=== PATIENT | female | born 1955 | race Two or more races ===

== ENCOUNTER 2024-12-06 16:22 | Inpatient (IN) | payer MEDICAID ==
[~2024-12-06] VITALS: Ht 152.4 cm; Wt 40.9 kg
[2024-12-06] VITALS (22 sets, daily range): BP systolic 64–153; BP diastolic -19–91; PULSE 123–138; RESP 16–21; TEMP 98.1–99.2; O2SAT 90–99
[2024-12-06] MEDS: NOREPINEPHRINE 8 MG/250ML KIT 250 ML IV SCH (16:30)
[2024-12-06] MEDS: VASOPRESSIN 20 UNITS in SODIUM CHL 0.9% 99 ML IV SCH (16:40)
--- NOTE | 2024-12-06 16:42 | ED.PDOC ---
CPR-HPI HPI Comments 69-year-old female BIBA due to ALOC. EMS was bagging upon arrival at 1622. ROSC was obtained at 1606 prior to ER arrival. Per EMS, initial call was for a possible seizure, but when they arrived patient was unresponsive and was in V- Fib. Patient was shocked twice at 200 Joules. Patient went into V-Tach and was given one round of Lidocaine and 2 rounds of Epi as well. Glucose reading "HIGH". MD at bedside upon patient arrival to ER. Chief Complaint: ALOC Time Seen by MD: 16:22 Primary Care Provider: UNKNOWN Reviewed Notes: Medications, Allergies Allergies: Coded Allergies: NO KNOWN ALLERGIES (Unverified , 12/06/24) Home Meds Reported Medications Omeprazole (Omeprazole Dr) 20 Mg Cap, 20 MG PO, CAP 12/07/24 Fluoxetine Hcl (Fluoxetine Hcl) 20 Mg Cap, 20 MG PO DAILY for 30 Days, MG 12/07/24 Triamcinolone Acetonide (Triamcinolone Acetonide) 0.5 % Cre, 1 APPLIC TOP, APPLIC 12/07/24 Atorvastatin Calcium (Lipitor) 40 Mg Tab, 1 TAB PO DAILY, #30 TAB 5 Refills 12/07/24 Metformin Hydrochloride (Metformin Hcl Er) 750 Mg Tab, 1 TAB PO BID 12/07/24 Glimepiride (Glimepiride) 4 Mg Tab, 4 MG PO for 30 Days, MG 12/07/24 Information Source: Emergency Med Personnel Mode of Arrival: EMS Timing: Minutes Duration: Down time prior EMS: (10 mins), Total time prior hopital: (20 mins) Onset: Witnessed Available Hx: Other (DM) Inital rhythm: V-fib Treatment: CPR, Defibrillation, IV, Epinephrine Response: Sustained return of pulse Associated signs and symptoms: None Past Medical History PAST MEDICAL HISTORY: DM, Seizures Surgical History: Unknown, Unobtainable FINANCIAL ASSISTANCE ADVISOR History: Unknown, Unobtainable Family History Family History: Unknown, Unobtainable Social History Smoker: Unknown, Unobtainable Alcohol: Unknown, Unobtainable Drugs: Unknown, Unobtainable Lives In: Home Constitutional: denies: chills, diaphoresis, fatigue, fever, malaise, sweats, weakness, others EENTM: denies: blurred vision, double vision, ear bleeding, ear discharge, ear drainage, ear pain, ear ringing, eye pain, eye redness, hearing loss, mouth pain, mouth swelling, nasal discharge, nose bleeding, nose congestion, nose pain, photophobia, tearing, throat pain, throat swelling, voice changes, others Respiratory: denies: cough, hemoptysis, orthopnea, SOB at rest, shortness of breath, SOB with excertion, stridor, wheezing, others Cardiovascular: denies: chest pain, dizzy spells, diaphoresis, Dyspnea on exert ion, edema, irregular heart beat, left arm pain, lightheadedness, palpitations, PND, syncope, others Gastrointestinal: denies: abdomen distended, abdominal pain, blood streaked bowels, constipated, diarrhea, dysphagia, difficulty swallowing, hematemesis, melena, nausea, poor appetite, poor fluid intake, rectal bleeding, rectal pain, vomiting, others Genitourinary: denies: abnormal vagina bleeding, burning, dyspareunia, dysuria, flank pain, frequency, hematuria, incontinence, pain, , vagina discharge, urgency, others Neurological: denies: dizziness, fainting, headache, left sided numbness, left sided weakness, numbness, paresthesia, pre-existing deficit, right sided numbness, right sided weakness, seizure, speech problems, tingling, tremors, weakness, others Musculoskeletal: denies: back pain, gout, joint pain, joint swelling, muscle pain, muscle stiffness, neck pain, others Integumetry: denies: bruises, change in color, change in hair/nails, dryness, laceration, lesions, lumps, rash, wounds, others Allergic/Immunocompromised: denies: Difficulty Healing, Frequent Infections, Hives, Itching, others Hematologic/Lymphatic: denies: anemia, blood clots, easy bleeding, easy bruising, swollen glands, others Endocrine: denies: excessive hunger, excessive sweating, excessive thirst, excessive urination, flushing, intolerance to cold, intolerance to heat, unexplained weight gain, unexplained weight loss, others Psychiatric: denies: anxiety, bipolar disorder, depression, hopeless, panic disorder, schizophrenia, sleepless, suicidal, others Unable to Obtain due to: Medical Urgency (STATUS-POST CPR) All Other Systems: Reviewed and Negative Physical Exam General Appearance: Severe Distress (STATUS-POST CPR) HEENT: NOT DONE Neck: NOT DONE Respiratory: NOT DONE Cardiovascular: NOT DONE Breast Exam: Deferred Gastrointestinal: NOT DONE Genitalia: Deferred Pelvic: Deferred Rectal: Deferred Extremities: NOT DONE Neurologic: NOT DONE Cerebellar Function: NOT DONE Reflexes: NOT DONE Skin: NOT DONE Lymphatic: NOT DONE Was a procedure done? Was a procedure done?: Yes Sedation Sedation?: No Central Line Recorder of insertion practice: Plug Paster Occupation of proj mgr: Attending Physician Indication: Hypotension, Volume resuscitation Room prepared for procedure: Yes Plug Paster performed hand hygien: Yes Maximal sterile barrier precau: Mask/Eye shield, Sterlie gloves, Large sterlie drape Skin Preparation: Chlorhexidine gluconate Skin preparation completely dr: Yes Insertion site: Right, Femoral Central line catheter type: [id number] dialysis Number of lumens: 3 Central line exchanged over a: Yes Antiseptic ointment applied to: Yes Post Assessment: Proper placement Informed consent obtained: No Risks/benefits/alt described: No Intubation Indication: Respiratory Insufficiency, Altered Mental Status Prep: No Preoxygenation Pretreated with: Other (Etomidate) Medicated with: Other (Rocuronium) Intubation Approach: Orotracheal Intubation size: cm (8) Informed consent obtained: No Risks/benefits/alt described: No Other Procedure Procedure Right Femoral Arterial Line Insertion Indication Post arrest on multiple pressors Anesthetic None Prep Chlorhexadine Success Yes Informed consent obtained: No Risks, benefits, and alternati: No Differential Dx CPR Differential Diagnosis: Cardiopulmonary arrest, Cardiac Tamponade, Myocardial Infarction, Respiratory Failure X-Ray, Labs, Meds, VS Vital Signs Date Time Temp Pulse Resp B/P (MAP) Pulse Ox O2 Delivery O2 Flow Rate FiO2 12/06/24 19:00 113/56 12/06/24 19:00 113/56 12/06/24 19:00 113/56 12/06/24 19:00 123 18 113/56 (75) 98 12/06/24 19:00 123 19 113/56 (75) 96 12/06/24 18:45 123 18 101/55 (70) 98 12/06/24 18:30 123 18 110/77 (88) 98 12/06/24 18:27 121 12/06/24 18:15 122 18 122/61 (81) 98 12/06/24 18:00 121 20 124/64 (84) 98 12/06/24 18:00 124/64 6/16/25 18:00 124/64 12/06/24 18:00 124/64 12/06/24 17:55 123 21 115/73 (87) 96 50 12/06/24 17:45 117 17 126/70 (88) 98 12/06/24 17:30 111 17 123/70 (87) 98 12/06/24 17:30 Mechanical Ventilator+ 50 50 12/06/24 17:15 129/73 12/06/24 17:15 129/73 12/06/24 17:15 129/73 12/06/24 17:06 140/82 12/06/24 17:00 141/77 12/06/24 16:55 129/75 12/06/24 16:50 117/70 12/06/24 16:40 54/33 12/06/24 16:39 95 12/06/24 16:35 51/28 12/06/24 16:30 90 16 51/28 (36) 99 100 12/06/24 16:30 83/45 12/06/24 16:25 98.1 101 20 83/45 (58) 99 98.1 12/06/24 16:22 98.1 101 20 83/45 (58) 99 98.1 Lab Test 12/06/24 17:48 12/06/24 17:46 12/06/24 16:50 Range/Units Sodium Level 134 L 132 L 136-145 mmol/L Potassium Level 4.6 4.5 3.5-5.1 mmol/L Chloride Level 97 L 96 L 98-107 mmol/L Carbon Dioxide Level < 10 *L < 10 *L 20-31 mmol/L Anion Gap 27.32568 H 26.57103 H 5-15 Blood Urea Nitrogen 78 #H 63 H 9-23 mg/dL Creatinine 2.41 H 2.36 H 0.550-1.02 mg/dL Glomerular Filtration Rate Calc 21 22 >90 mL/min BUN/Creatinine Ratio 32.4 H 26.7 H 10.0-20.0 Serum Glucose 672 *H 668 *H 74-106 mg/dL Calcium Level 9.0 9.3 8.7-10.4 mg/dL Troponin I High Sensitivity 419 *H 210 *H </=34 ng/L Blood Gas Specimen Type Arterial Blood Gas Sample Site Right radial Blood Gas Patient Temperature 37.0 Arterial Blood Date Drawn [id number] Arterial Blood pH 6.995 *L 7.350-7.450 Arterial Blood Partial Pressure CO2 31.1 L 32.0-45.0 mmHg Arterial Blood Partial Pressure O2 343.8 *H 83.0-108.0 mmHg Arterial Blood HCO3 7.4 L 21.0-28.0 mmol/L Arterial Blood Oxygen Saturation 99.1 H 94.0-98.0 % Arterial Blood Base Excess -23.0 L -2.0-3.0 mmol/L Arterial Blood Oxyhemoglobin 98.0 94.0-98.0 % Arterial Blood Carboxyhemoglobin 0.4 L 0.5-1.5 % Arterial Blood Methemoglobin 0.7 0.0-1.5 % Anson Test Yes Blood Gas Total Hemoglobin 14.20 12.0-16.0 g/dL Blood Gas Set Respiration Rate 16.0 Blood Gas Modality Vent - ac Blood Gas Spontaneous Rate 20 FiO2 % 100.0 Blood Gas Tidal Volume 400.0 Blood Gas PEEP or CPAP 5.0 Blood Gas Comments Blood Gas Critical Value Read Back Yes Blood Gas Notified Whom Dr. sebastien dong Blood Gas Notified Time [id number] Blood Gas Notified By Ronald vega rice farmer White Blood Count 12.5 H 4.4-10.8 10^3/uL Red Blood Count 3.87 L 4.0-5.20 10^6/uL Hemoglobin 12.6 12.2-16.2 g/dL Hematocrit 38.5 36.0-46.0 % Mean Corpuscular Volume 99.5 80.0-100.0 fL Mean Corpuscular Hemoglobin 32.5 H 28.0-32.0 pg Mean Corpuscular Hemoglobin Concent 32.6 32.0-36.0 g/dL Red Cell Distribution Width 13.1 11.8-14.3 % Platelet Count 216 140-450 10^3/uL Mean Platelet Volume 7.7 6.9-10.8 fL Neutrophils (%) (Auto) 60.9 37.0-80.0 % Lymphocytes (%) (Auto) 35.4 10.0-50.0 % Monocytes (%) (Auto) 3.4 0.0-12.0 % Eosinophils (%) (Auto) 0.2 0.0-7.0 % Basophils (%) (Auto) 0.1 0.0-2.0 % Neutrophils # (Auto) 7.6 1.6-8.6 10 ^3/uL Lymphocytes # (Auto) 4.4 0.4-5.4 10 ^3/uL Monocytes # (Auto) 0.4 0-1.3 10 ^3/uL Eosinophils # (Auto) 0 0-0.8 10 ^3/uL Basophils # (Auto) 0 0-0.2 10 ^3/uL Nucleated Red Blood Cells 0.1 % Serum Osmolality 343 H 278-298 mOsm/kg Lactic Acid Level 10.0 *H 0.4-2.0 mmol/L Phosphorus Level 10.4 H 2.4-5.1 mg/dL Magnesium Level 2.6 1.6-2.6 mg/dL Total Bilirubin 0.3 0.2-1.0 mg/dL Aspartate Amino Transferase (AST) 432 H <34 U/L Alanine Aminotransferase (ALT) 177 H 7-40 U/L Alkaline Phosphatase 121 H 46-116 U/L B-Type Natriuretic Peptide 116.46 0-100 pg/mL Total Protein 5.3 L 5.7-8.2 g/dL Albumin 3.1 L 3.2-4.8 g/dL Microbiology Date/Time Source Procedure Growth Status 12/06/24 16:50 Blood Blood Culture - Preliminary Resulted Current Medications Medications (Trade) Dose Ordered Sig/Kem Route Start Time Stop Time Status Last Admin Vasopressin 20 units/Sodium Chloride 100 ml @ 9 mls/hr Q11H7M IV 12/06/24 16:45 12/07/24 00:53 Norepinephrine Bitartrate 250 ml @ 3.75 mls/hr Q24H IV 12/06/24 16:45 12/07/24 06:48 Midazolam HCl 50 ml @ 1 mls/hr Q24H IV 12/06/24 17:15 12/06/24 17:15 Fentanyl Citrate 250 ml @ 2.5 mls/hr Q24H IV 12/06/24 17:15 12/06/24 17:15 Insulin Human (Reg)/Sodium Chloride 100 ml @ 0.5 mls/hr Q24H IV 12/06/24 18:00 12/06/24 20:48 DC 12/06/24 18:30 Diagnostic Test (Pha) (Accu-Chek Comfort Curve T) 1 strip Q90MIN 12/06/24 18:00 12/07/24 06:12 Insulin Glargine (Lantus) 15 units ONCE ONCE SC 12/06/24 18:00 12/06/24 18:01 DC 12/06/24 18:41 Sodium Bicarbonate 100 ml ONCE ONCE IV 12/06/24 18:00 12/06/24 18:01 DC 12/06/24 18:30 Time of 1ST Reevaluation: 16:50 Reevaluation 1ST: Unchanged Patient Education/Counseling: Pt Unresponsive Family Education/Counseling: No Family Present SEPSIS Sepsis Screen Date sepsis recognized/suspect: Dec 06, 2024 Time Sepsis recognized/suspect: 1620 Recent Procedure: No Respiratory Rate >20: No Heart Rate >90: No Temp<36 C (96.8 F) or >38.3 C: No SBP <90 or MAP <65 mmHG: No New Acute Mental Status Change: Yes Is the patient on CPAP, BIPAP,: No Orders/Vitals/Labs Physician Orders Sodium Chl 0.9% (So... W/Vasopressin (12/06/24 16:45) Norepinephrine 8 Mg/250ml Kit (Levophed) (12/06/24 16:45) Post Acute Care Nurse Practitioner (12/06/24 16:40) Pulse Oximetry (12/06/24 16:40) Drug Screen (12/06/24 16:40) Urinalysis (12/06/24 16:40) Urine Bacterial Culture (12/06/24 16:40) Blood Culture (12/06/24 16:40) Electrocardigram (12/06/24 16:40) Chest Portable (12/06/24 16:40) Heplock Iv (12/06/24 16:40) Electrocardigram (12/06/24 17:40) Electrocardigram (12/06/24 19:40) Communication Order (12/06/24 16:42) Communication Order (12/06/24 16:42) Ventilator Setup (12/06/24 16:30) Abg W/ Co-Ox (12/06/24 17:30) Respiratory Culture W/ Gs (12/06/24 16:30) Midazolam Drip 50 Mg/50ml (Versed Drip 5 (12/06/24 17:15) Fentanyl Drip 2500mcg/250mlns (12/06/24 17:15) Rass Sedation Scale Q1HR (12/06/24 17:15) Propofol (Diprivan) (12/06/24 17:30) Chest Portable (12/06/24 17:29) Head Without Contrast (12/06/24 17:30) Insulin Drip Protocol (12/06/24 ) Sodium Chloride 0.9% (12/07/24 00:00) Dextrose 50% Syringe (12/06/24 18:00) Glucose Blood (Accu-Chek Comfort Curve T (12/06/24 18:00) Basic Metabolic Panel (12/07/24 11:49) Neurological Assessment (12/06/24 17:49) Insulin Lantus (Glargine) (Lantus) (12/07/24 10:00) Vital Signs Date Time Temp Pulse Resp B/P (MAP) Pulse Ox O2 Delivery O2 Flow Rate FiO2 12/06/24 19:00 113/56 12/06/24 19:00 113/56 12/06/24 19:00 113/56 12/06/24 19:00 123 18 113/56 (75) 98 12/06/24 19:00 123 19 113/56 (75) 96 12/06/24 18:45 123 18 101/55 (70) 98 12/06/24 18:30 123 18 110/77 (88) 98 12/06/24 18:27 121 12/06/24 18:15 122 18 122/61 (81) 98 12/06/24 18:00 121 20 124/64 (84) 98 12/06/24 18:00 124/64 12/06/24 18:00 124/64 12/06/24 18:00 124/64 12/06/24 17:55 123 21 115/73 (87) 96 50 12/06/24 17:45 117 17 126/70 (88) 98 12/06/24 17:30 111 17 123/70 (87) 98 12/06/24 17:30 Mechanical Ventilator+ 50 50 12/06/24 17:15 129/73 12/06/24 17:15 129/73 12/06/24 17:15 129/73 12/06/24 17:06 140/82 12/06/24 17:00 141/77 12/06/24 16:55 129/75 12/06/24 16:50 117/70 12/06/24 16:40 54/33 12/06/24 16:39 95 12/06/24 16:35 51/28 12/06/24 16:30 90 16 51/28 (36) 99 100 12/06/24 16:30 83/45 12/06/24 16:25 98.1 101 20 83/45 (58) 99 98.1 12/06/24 16:22 98.1 101 20 83/45 (58) 99 98.1 Laboratory Tests Test 12/06/24 16:50 Lactic Acid Level 10.0 mmol/L (0.4-2.0) *H White Blood Count 12.5 10^3/uL (4.4-10.8) H Departure 1 Departure Time of Disposition: 07:21 (Patient presented with post arrest. Patient was emergently intubated, central line placed, and arterial line placed. patient on multiple pressors. Patient also in DKA will admit patient to ICU. ) Impression: Primary Impression: Cardiac arrest Additional Impressions: DKA, type 2 Qualified Codes: E11.11 - Type 2 diabetes mellitus with ketoacidosis with coma Ventricular fibrillation Cardiogenic shock Disposition: ADMITTED INPATIENT Admit to: ICU Condition: Critical Critical Care Note Critical Care Time?: Yes Critical care comment: Post arrest patient in DKA. Authorized and Performed by: Kelvin Dong MD Total critical care time: Approximately 118 minutes Due to a high probability of clinically significant, life threatening deterioration, the patient required my highest level of preparedness to intervene emergently and I personally spent this critical care time directly and personally managing the patient. This critical care time included obtaining a history; examining the patient; pulse oximetry; ordering and review of studies; arranging urgent treatment with development of a management plan; evaluation of patient's response to treatment; frequent reassessment; and, discussions with other providers. This critical care time was performed to assess and manage the high probability of imminent, life-threatening deterioration that could result in multi-organ failure. It was exclusive of separately billable procedures and treating other patients and teaching time. Please see my other sections and the rest of the note for further information on patient assessment and treatment. Heart Score Heart Score: Heart Score Response (Comments) Value History Highly Suspicious [address]-Deviation 2 Age >65 2 Risk Factors >3 or Hx ASHD 2 Troponin >3 x's Normal limit 2 Total 10 Stability Stability form required: No I personally scribed for KELVIN DONG MD ([email or web address]) on 12/06/24 at 16:42. Electronically submitted by Ash Walls ([email or web address]). KELVIN DONG MD Dec 06, 2024 16:42
[2024-12-06] MEDS: VASOPRESSIN 20 UNIT/ML ONE (16:44)
[2024-12-06 17:07] LABS: Basophils # (auto) 0 10 ^3/uL (0-0.2); Basophils % (auto) 0.1 % (0.0-2.0); Eosinophils # (auto) 0 10 ^3/uL (0-0.8); Eosinophils % (auto) 0.2 % (0.0-7.0); Hematocrit 38.5 % (36.0-46.0); Hemoglobin 12.6 g/dL (12.2-16.2); Lymphocytes # (auto) 4.4 10 ^3/uL (0.4-5.4); Lymphocytes % (auto) 35.4 % (10.0-50.0); Mean Corpuscular Hemoglobin 32.5 pg (28.0-32.0); Mean Corpuscular Hgb Conc. 32.6 g/dL (32.0-36.0); Mean Corpuscular Volume 99.5 fL (80.0-100.0); Monocytes # (auto) 0.4 10 ^3/uL (0-1.3); Monocytes % (auto) 3.4 % (0.0-12.0); Neutrophils # (auto) 7.6 10 ^3/uL (1.6-8.6); Neutrophils % (auto) 60.9 % (37.0-80.0); Nucleated Red Blood Cells % 0.1 %; Platelet Count (auto) 216 10^3/uL (140-450); Red Blood Cells 3.87 10^6/uL (4.0-5.20); Red Cell Distribution Width 13.1 % (11.8-14.3); White Blood Cell 12.5 10^3/uL (4.4-10.8)
[2024-12-06] MEDS: MIDAZOLAM DRIP 50 mg/50mL 50 ML IV SCH (17:15)
[2024-12-06] MEDS: fentaNYL Drip 2500mCg/250mlNS 250 ML IV SCH (17:15)
--- NOTE | 2024-12-06 17:15 | DVH ---
CHEST RADIOGRAPH Indication: ALOC Technique: Single frontal view of the chest was obtained COMPARISON: None FINDINGS: Lines and Tubes: Endotracheal tube in satisfactory position. Lungs: Multifocal airspace disease. Pleura: No effusion. No pneumothorax. Cardiomediastinal contours: Unremarkable Bones: Unremarkable IMPRESSION: Endotracheal tube in satisfactory position.
[2024-12-06] MEDS: MIDAZOLAM DRIP 50 mg/50mL 50 ML IV ONE (17:22)
[2024-12-06] MEDS: fentaNYL Drip 2500mCg/250mlNS 250 ML IV ONE (17:23)
[2024-12-06 17:28] LABS: Anion Gap 26.00001 (5-15); BUN/Creatinine Ratio 26.7 (10.0-20.0); Bilirubin, Total 0.3 mg/dL (0.2-1.0); Calcium 9.3 mg/dL (8.7-10.4); Potassium 4.5 mmol/L (3.5-5.1)
[2024-12-06 17:43] LABS: Alanine Aminotransferase 177 U/L (7-40); Albumin 3.1 g/dL (3.2-4.8); Alkaline Phosphatase 121 U/L (46-116); Aspartate Aminotransferase 432 U/L (<34); Blood Urea Nitrogen 63 mg/dL (9-23); Chloride 96 mmol/L (98-107); Sodium 132 mmol/L (136-145); Total Protein 5.3 g/dL (5.7-8.2)
[2024-12-06 17:44] LABS: Carbon Dioxide < 10 mmol/L (20-31); Glucose 668 mg/dL (74-106)
[2024-12-06] MEDS: SODIUM CHLORIDE 0.9% 1,000 ML IV ONE (18:00)
[2024-12-06] MEDS: SODIUM CHLORIDE 0.9% 1,000 ML IV SCH ×2 (18:00→21:12)
[2024-12-06 18:20] LABS: Magnesium 2.6 mg/dL (1.6-2.6)
--- NOTE | 2024-12-06 18:21 | DVH ---
CHEST RADIOGRAPH Indication: OG PLACMENT Technique: Single frontal view of the chest was obtained Comparison: 12/06/2024 FINDINGS: Endotracheal tube tip projects 1.0.8 cm above the jason. Nasogastric tube projects towar ds the proximal stomach. Recommend repositioning / advancement of the nasogastric tube. The cardiac silhouette is unremarkable. The lungs demonstrate diffuse bilateral airspace opacities, l [id number]. The pulmonary vasculature is prominent. There is no pleural effusion.. There is no pneumothorax. Gaseous distention of the stomach. IMPRESSION: As above
[2024-12-06 18:27] LABS: Phosphorus 10.4 mg/dL (2.4-5.1)
[2024-12-06] MEDS: ACCU-CHEK COMFORT CURVE STRIP VI SCH (18:29)
[2024-12-06] MEDS: INSULIN DRIP 100 UNIT/100ML 100 ML IV SCH (18:30)
[2024-12-06] MEDS: SODIUM BICARB 8.4% 50Meq/50ml SYR Vial IV ONE (18:30)
[2024-12-06] MEDS: PROPOFOL 100 ML IV SCH (18:37)
[2024-12-06] MEDS: INSULIN LANTUS (GLARGINE) 1 /0.01ml (100units/ml) SC ONE (18:41)
[2024-12-06 18:44] LABS: Potassium 4.6 mmol/L (3.5-5.1)
[2024-12-06 18:45] LABS: Anion Gap 27.00001 (5-15)
[2024-12-06 18:50] LABS: BUN/Creatinine Ratio 32.4 (10.0-20.0)
[2024-12-06] MEDS ORDERED: VANCOMYCIN PER PHARMACY 0 MG IV SCH (19:15)
[2024-12-06] MEDS ORDERED: IBUPROFEN 600 MG TAB PO PRN (19:15)
[2024-12-06] MEDS ORDERED: MORPHINE SULFATE INJ 2 MG/ml SYRG IV PRN ×2 (19:15)
[2024-12-06] MEDS ORDERED: ONDANSETRON HCL 4 MG/2 ML VIAL IV PRN (19:15)
[2024-12-06] MEDS ORDERED: NITROGLYCERIN 0.4 MG SL TAB SL PRN ×2 (19:15)
[2024-12-06 19:24] LABS: Blood Urea Nitrogen 78 mg/dL (9-23); Chloride 97 mmol/L (98-107); Sodium 134 mmol/L (136-145)
[2024-12-06 19:25] LABS: Carbon Dioxide < 10 mmol/L (20-31); Glucose 672 mg/dL (74-106)
--- NOTE | 2024-12-06 19:32 | DVHHP2 ---
History of Present Illness Reason for Visit: Diabetic ketoacidosis History of Present Illness The patient is a 69-year-old female with past medical history of seizure and diabetes mellitus who presented to [facility] ED for evaluation of altered level of consciousness. As reported by EMS, initial call was for poss ible seizure, but when they arrived on the scene patient was unresponsive and was in V-Fib, was shocked twice at 200 Joules. Patient went into V-Tach, was given one round of Lidocaine, and 2 rounds of Epi as well; blood glucose reading "HIGH", EN route to our facility ED. patient's condition continued to get worse with hypoxia, altered mental status, increased work of breathing, and was subsequently intubated. Patient was seen and evaluated in the ED, laboratory data shows WBC 12.5, platelets 216, sodium 132, potassium 4.5, BUN 63, creatinine 2.36, glucose 668, anion gap 26.00, calcium 9.3, BNP 116.46, protein 5.3, albumin 3.1, lactic acid 10.0, AST 432, ALT 177, troponin 419, blood pressure 54/33 trending up to 122/61, heart rate 90, temperature 98.1 F, O2 saturation 98% on ventilator. Patient was started on insulin drip, on IV antibiotic regimen Zosyn, please see medication orders section in the computer. On my assessment, patient is fully intubated, no diaphoresis, no diarrhea, no vomiting, no fever, no chills. Patient was admitted for further evaluation and medical management. Past Medical History DM, Seizures Past Surgical History Unknown, Unobtainable Family History Reviewed, noncontributory to the management of this case. Past Social History The patient lives at home, no history of smoking, alcohol or illicit drugs abuse on file. Review of Systems Constitutional: Yes: Weakness, Other (Fatigue); No: Fever, Chills, Sweats, Malaise Eyes: No: Pain, Vision change, Conjunctivae inflammation, Eyelid inflammation, Other, Redness ENT: No: Ear pain, Ear discharge, Nose pain, Nose discharge, Nose congestion, Mouth pain, Mouth swelling, Throat pain, Throat swelling, Other Respiratory: Shortness of breath, Other (SOB at rest); No: Cough, Dry, SOB with excertion, Wheezing, Hemoptysis, Pleuritic Pain, Sputum, Wheezing Cardiovascular: No: Chest Pain, Palpitations, Orthopnea, Paroxysmal Noc. Dyspnea, Edema, Lt Headedness, Other Gastrointestinal: No: Nausea, Vomiting, Abdominal Pain, Diarrhea, Constipation, Melena, Hematochezia, Other Genitourinary: No Dysuria, No Frequency, No Incontinence, No Hematuria, No Retention, No Other Musculoskeletal: No: other, neck pain, shoulder pain, arm pain, back pain, hand pain, leg pain, foot pain Skin: No: Rash, Lesions, Jaundice, Bruising, Other Neurological: Other (Altered level of consciousness); No: Weakness, Numbness, Incoordination, Change in speech, Confusion, Seizures Allergies: Coded Allergies: NO KNOWN ALLERGIES (Unverified , 12/06/24) Medications Current Medications Medications Dose Ordered Sig/Kem Route Start Time Stop Time Status Last Admin Dose Admin Vasopressin 20 units/Sodium Chloride 100 ml @ 9 mls/hr Q11H7M IV 12/06/24 16:45 12/06/24 16:40 9 MLS/HR Norepinephrine Bitartrate 250 ml @ 3.75 mls/hr Q24H IV 12/06/24 16:45 12/06/24 16:30 18.75 MLS/HR Midazolam HCl 50 ml @ 1 mls/hr Q24H IV 12/06/24 17:15 12/06/24 17:15 1 MLS/HR Fentanyl Citrate 250 ml @ 2.5 mls/hr Q24H IV 12/06/24 17:15 12/06/24 17:15 2.5 MLS/HR Propofol 100 ml @ 1.227 mls/ hr Q24H IV 12/06/24 17:30 Sodium Chloride 1,000 ml @ 500 mls/hr Q2H IV 12/06/24 18:00 12/06/24 21:59 Sodium Chloride 1,000 ml @ 250 mls/hr Q4H IV 12/06/24 22:00 12/06/24 23:59 Sodium Chloride 1,000 ml @ 150 mls/hr Q6H40M IV 12/07/24 00:00 Insulin Human (Reg)/Sodium Chloride 100 ml @ 0.5 mls/hr Q24H IV 12/06/24 18:00 12/06/24 18:30 6 MLS/HR Dextrose 50 ml UD PRN IV 12/06/24 18:00 Diagnostic Test (Pha) 1 strip Q90MIN 12/06/24 18:00 12/06/24 18:29 1 STRIP Insulin Glargine 15 units DAILY SC 12/07/24 10:00 Nitroglycerin 0.4 mg Q5MINP PRN SL 12/06/24 19:15 Morphine Sulfate 2 mg Q30M PRN IV 12/06/24 19:15 Exam Vital Signs Vital Signs Date Time Temp Pulse Resp B/P (MAP) Pulse Ox O2 Delivery O2 Flow Rate FiO2 12/06/24 18:27 121 12/06/24 18:15 18 122/61 (81) 98 12/06/24 16:30 100 12/06/24 16:25 98.1 98.1 General Appearance: Other (Fully intubated) HEENT: Atraumatic, PERRLA, EOMI, Mucous membr. moist/pink Respiratory: Normal air movement, Other (On ventilator) Cardiovascular: Regular rate, Normal S1, Normal S2, No murmurs Abdominal: Normal bowel sounds, Soft, No tenderness, No hepatospenomegaly, No masses Extremities: No clubbing, No cyanosis, No edema, Normal pulses, No tenderness/swelling Skin: No rashes, No breakdown, No significant lesion Neuro: Normal tone (Generalized weakness), Other Psych/Mental Status: Mood NL, Other (Altered mental status) Labs/Xrays Labs Test 12/06/24 19:26 12/06/24 17:48 12/06/24 17:46 12/06/24 16:50 Range/Units Sodium Level 134 L 136-145 mmol/L Potassium Level 4.6 3.5-5.1 mmol/L Chloride Level 97 L 98-107 mmol/L Carbon Dioxide Level < 10 *L 20-31 mmol/L Anion Gap 27.48920 H 5-15 Blood Urea Nitrogen 78 #H 9-23 mg/dL Creatinine 2.41 H 0.550-1.02 mg/dL Glomerular Filtration Rate Calc 21 >90 mL/min BUN/Creatinine Ratio 32.4 H 10.0-20.0 Serum Glucose 672 *H 74-106 mg/dL Calcium Level 9.0 8.7-10.4 mg/dL Blood Gas Specimen Type Arterial Blood Gas Sample Site Right radial Blood Gas Patient Temperature 37.0 Arterial Blood Date Drawn [id number] Arterial Blood pH 6.995 *L 7.350-7.450 Arterial Blood Partial Pressure CO2 31.1 L 32.0-45.0 mmHg Arterial Blood Partial Pressure O2 343.8 *H 83.0-108.0 mmHg Arterial Blood HCO3 7.4 L 21.0-28.0 mmol/L Arterial Blood Oxygen Saturation 99.1 H 94.0-98.0 % Arterial Blood Base Excess -23.0 L -2.0-3.0 mmol/L Arterial Blood Oxyhemoglobin 98.0 94.0-98.0 % Arterial Blood Carboxyhemoglobin 0.4 L 0.5-1.5 % Arterial Blood Methemoglobin 0.7 0.0-1.5 % Anson Test Yes Blood Gas Total Hemoglobin 14.20 12.0-16.0 g/dL Blood Gas Set Respiration Rate 16.0 Blood Gas Modality Vent - ac Blood Gas Spontaneous Rate 20 FiO2 % 100.0 Blood Gas Tidal Volume 400.0 Blood Gas PEEP or CPAP 5.0 Blood Gas Comments Blood Gas Critical Value Read Back Yes Blood Gas Notified Whom Dr. sebastien dong Blood Gas Notified Time [id number] Blood Gas Notified By Ronald vega [facility] White Blood Count 12.5 H 4.4-10.8 10^3/uL Red Blood Count 3.87 L 4.0-5.20 10^6/uL Hemoglobin 12.6 12.2-16.2 g/dL Hematocrit 38.5 36.0-46.0 % Mean Corpuscular Volume 99.5 80.0-100.0 fL Mean Corpuscular Hemoglobin 32.5 H 28.0-32.0 pg Mean Corpuscular Hemoglobin Concent 32.6 32.0-36.0 g/dL Red Cell Distribution Width 13.1 11.8-14.3 % Platelet Count 216 140-450 10^3/uL Mean Platelet Volume 7.7 6.9-10.8 fL Neutrophils (%) (Auto) 60.9 37.0-80.0 % Lymphocytes (%) (Auto) 35.4 10.0-50.0 % Monocytes (%) (Auto) 3.4 0.0-12.0 % Eosinophils (%) (Auto) 0.2 0.0-7.0 % Basophils (%) (Auto) 0.1 0.0-2.0 % Neutrophils # (Auto) 7.6 1.6-8.6 10 ^3/uL Lymphocytes # (Auto) 4.4 0.4-5.4 10 ^3/uL Monocytes # (Auto) 0.4 0-1.3 10 ^3/uL Eosinophils # (Auto) 0 0-0.8 10 ^3/uL Basophils # (Auto) 0 0-0.2 10 ^3/uL Nucleated Red Blood Cells 0.1 % Serum Osmolality 343 H 278-298 mOsm/kg Phosphorus Level 10.4 H 2.4-5.1 mg/dL Magnesium Level 2.6 1.6-2.6 mg/dL Total Bilirubin 0.3 0.2-1.0 mg/dL Aspartate Amino Transferase (AST) 432 H <34 U/L Alanine Aminotransferase (ALT) 177 H 7-40 U/L Alkaline Phosphatase 121 H 46-116 U/L B-Type Natriuretic Peptide 116.46 0-100 pg/mL Total Protein 5.3 L 5.7-8.2 g/dL Albumin 3.1 L 3.2-4.8 g/dL PATIENT: BLAYNE OMALLEY ACCT: [id number] UNIT: [id number] : 1955 LOC: ER ROOM / BED: / AGE / SEX: 69 / F ADM STATUS: REG ER SERVICE 1729 ORDERING PHYSICIAN: KELVIN DONG MD PROCEDURE(s): CXRP - CHEST PORTABLE REASON: OG PLACMENT ORDER NUMBER(s): [id number], ACCESSION NUMBER(s): [id number] CHEST RADIOGRAPH Indication: OG PLACMENT Technique: Single frontal view of the chest was obtained Comparison: 12/06/2024 FINDINGS: Endotracheal tube tip projects 1.0.8 cm above the jason. Nasogastric tube projects towards the proximal stomach. Recommend repositioning/advancement of the nasogastric tube. The cardiac silhouette is unremarkable. The lungs demonstrate diffuse bilateral airspace opacities, [id number]. The pulmonary vasculature is prominent. There is no pleural effusion.. There is no pneumothorax. Gaseous distention of the stomach. IMPRESSION: As above ORDERING PHYSICIAN: KELVIN DONG MD PROCEDURE(s): CXRP - CHEST PORTABLE REASON: ALOC ORDER NUMBER(s): [id number], ACCESSION NUMBER(s): [id number] CHEST RADIOGRAPH Indication: ALOC Technique: Single frontal view of the chest was obtained COMPARISON: None FINDINGS: Lines and Tubes: Endotracheal tube in satisfactory position. Lungs: Multifocal airspace disease. Pleura: No effusion. No pneumothorax. Cardiomediastinal contours: Unremarkable Bones: Unremarkable IMPRESSION: Endotracheal tube in satisfactory position. Assessment/Plan Assessment/Plan Diabetic ketoacidosis Altered mental status Imbalance electrolyte Elevated liver enzymes Acute renal injury Sepsis, unspecified organism Acute respiratory failure with hypoxia Plan 1. Admit to intensive care unit 2. Breathing treatment 3. Pain control management 4. IV antibiotic management 5. Management of fluids and electrolytes 6. Consultation for cardiology/nephrology/hospitalist 7. Diagnostic test chest x-ray 8. DVT prophylaxis-on heparin 9. Repeat labs CBC, CMP in a.m. 10. Home medication reviewed and reconciled 11. Continue with current medical management 12. Treatment plan discussed with patient and RN. Patient verbalized understanding. Plan discussed with: Patient, Other (RN) My Orders Orders - AHMET JOHNSON DNP Procedure Category Date Status Time Consistent DIET 12/07/24 Transmitted Carb(Ccho)Diabetes Breakfast Famotidine Injection PHA 12/06/24 Transmitted (Pepcid Injection) 22:00 Zosyn Extended PHA 12/06/24 Transmitted Infusion 22:00 Vancomycin Per PHA 12/06/24 Transmitted Pharmacy 19:15 *[facility] CONS 12/06/24 Transmitted [place] 19:10 *Consult CONS 12/06/24 Transmitted / 19:10 Ibuprofen Tablet PHA 12/06/24 Transmitted (Motrin Tablet) 19:15 Heparin Sodium PHA 12/06/24 Transmitted (Porcine) 22:00 * Cardiology Consult CONS 12/06/24 Transmitted 19:10 Admit ADMIT 12/06/24 Transmitted 19:10 Allergies NAMITA 12/06/24 Transmitted 19:10 Code Status CODE 12/06/24 Transmitted 19:10 Oxygen Per Hour RT 12/06/24 Transmitted 19:10 Ondansetron Hcl PHA 12/06/24 Transmitted (Zofran) 19:15 Fall Risk Precautions NAMITA 12/06/[address] 19:10 Complete Blood Count LAB 12/07/24 Verified 04:00 Comprehensive LAB 12/07/24 Verified Metabolic Panel 04:00 Condition: Critical NAMITA 12/06/24 Transmitted 19:10 Maintain Bed Rest NAMITA 12/06/24 Transmitted 19:10 Sequential NAMITA 12/06/24 Transmitted Compression Device Nitroglycerin PHA 12/06/24 Transmitted Sublingual (Ntrostat 19:15 Morphine Sulfate PHA 12/06/24 Transmitted Injection 19:15 Oxygen By Nasal RT 12/06/24 Transmitted Cannula 19:10 Problem List: (1) Diabetic ketoacidosis (2) Sepsis, unspecified organism (3) Acute renal injury (4) Elevated liver enzymes (5) Electrolyte imbalance (6) Altered mental status (7) Acute respiratory failure with hypoxia Date of Service: Dec 06, 2024 Billing Provider: AHMET JOHNSON DNP Common Visit Codes: [id number] INP/OBS CARE (HIGH) AHMET JOHNSON DNP Dec 06, 2024 19:32
[2024-12-06] MEDS ORDERED: INSULIN DRIP 100 UNIT/100ML 100 ML IV SCH ×2 (20:45→22:30)
[2024-12-06] MEDS: VANCOMYCIN 1GM/200ML PM 200 ML IV ONE (21:11)
[2024-12-06] MEDS: FAMOTIDINE (10MG/ML) 2ML VL IV SCH (21:11)
[2024-12-06] MEDS: PIPERACILLIN-TAZOB 3.375GM 100 ML IV ONE (21:11)
[2024-12-06] MEDS: HEPARIN SODIUM (PORCINE) 5000 UNITS/ML 1ML VIAL SC SCH (21:12)
[2024-12-07] VITALS (68 sets, daily range): BP systolic 53–121; BP diastolic 29–58; PULSE 112–134; RESP 13–24; TEMP 95.6–101.5; O2SAT 34–100
[2024-12-07] MEDS ORDERED: METF750T54 PO (00:17)
[2024-12-07] MEDS ORDERED: GLIM4TAB42 PO (00:17)
[2024-12-07] MEDS ORDERED: FLUO-125 PO (00:17)
[2024-12-07] MEDS ORDERED: OMEP1CAP70 PO (00:17)
[2024-12-07] MEDS ORDERED: ATOR-507 PO (00:17)
[2024-12-07] MEDS ORDERED: TRIA0.5C TOP (00:17)
[2024-12-07 00:38] LABS: Chloride 101 mmol/L (98-107); Potassium 3.9 mmol/L (3.5-5.1); Sodium 138 mmol/L (136-145)
[2024-12-07 00:43] LABS: Anion Gap 25 (5-15); Calcium 8.4 mg/dL (8.7-10.4); Carbon Dioxide 12 mmol/L (20-31)
[2024-12-07 00:45] LABS: BUN/Creatinine Ratio 32.6 (10.0-20.0)
[2024-12-07 00:48] LABS: Blood Urea Nitrogen 71 mg/dL (9-23); Glucose 371 mg/dL (74-106)
[2024-12-07] MEDS: PHENYLEPHRINE IV 250 ML IV SCH (00:54)
[2024-12-07] MEDS: INSULIN DRIP 100 UNIT/100ML 100 ML IV SCH ×2 (01:01→10:15)
[2024-12-07] MEDS: PIPERACILLIN-TAZOB 3.375GM 100 ML IV SCH (04:09)
[2024-12-07] MEDS: SODIUM CHLORIDE 0.9% 1,000 ML IV SCH (04:11)
[2024-12-07 04:13] LABS: Alkaline Phosphatase 105 U/L (46-116); Anion Gap 24 (5-15); Bilirubin, Total 0.3 mg/dL (0.2-1.0); Potassium 3.7 mmol/L (3.5-5.1); Sodium 142 mmol/L (136-145)
[2024-12-07 04:15] LABS: Alanine Aminotransferase 158 U/L (7-40); Albumin 2.8 g/dL (3.2-4.8); Aspartate Aminotransferase 422 U/L (<34); Blood Urea Nitrogen 69 mg/dL (9-23); Calcium 8.4 mg/dL (8.7-10.4); Carbon Dioxide 11 mmol/L (20-31); Chloride 107 mmol/L (98-107); Glucose 189 mg/dL (74-106); Total Protein 4.8 g/dL (5.7-8.2)
[2024-12-07 04:21] LABS: Hematocrit 38.5 % (36.0-46.0); Hemoglobin 13.4 g/dL (12.2-16.2); Mean Corpuscular Hemoglobin 32.7 pg (28.0-32.0); Mean Corpuscular Hgb Conc. 34.7 g/dL (32.0-36.0); Mean Corpuscular Volume 94.1 fL (80.0-100.0); Platelet Count (auto) 134 10^3/uL (140-450); Red Cell Distribution Width 13.1 % (11.8-14.3); White Blood Cell 6.5 10^3/uL (4.4-10.8)
[2024-12-07 04:27] LABS: Basophils % (manual) 0 (0.0-2.0); Blast Cells 0; Eosinophils % (manual) 0 (0-7); Reactive Lymphocytes 0
[2024-12-07 04:58] LABS: Base Excess -16.1 mmol/L (-2.0-3.0)
[2024-12-07 05:14] LABS: Band Neutrophils % (manual) 61; Lymphocytes % (manual) 15 (10.0-50.0); Metamyelocytes % 2; Monocytes % (manual) 3 (0-12); Myelocytes % 1; Platelet Estimate Decreased; Promyelocytes % 1
[2024-12-07] MEDS: SODIUM BICARB 8.4% 50Meq/50ml SYR Vial IV ONE ×2 (06:11→19:41)
--- NOTE | 2024-12-07 08:33 | DVH ---
CHEST RADIOGRAPH Indication: RESP FAILURE Technique: Single frontal view of the chest was obtained COMPARISON: XY CHEST PORTABLE on DOS: 12/06/24, XY CHEST PORTABLE on DOS: 12/06/24 FINDINGS: Lines and Tubes: Endotracheal tube, enteric catheter in satisfactory position. Lungs: Multifocal airspace disease. Pleura: No effusion. No pneumothorax. Cardiomediastinal contours: Unremarkable Bones: Unremarkable IMPRESSION: Lines and tubes in satisfactory position. No significant interval change.
[2024-12-07] MEDS ORDERED: ACETAMINOPHEN 650 mg PER 20.3 mL UD GT PRN (09:15)
[2024-12-07] MEDS: EPINEPHrine HCL 250 ML IV SCH (09:15)
[2024-12-07] MEDS: SODIUM CHLORIDE 0.9% 1,000 ML IV ONE (09:27)
[2024-12-07] MEDS: DEXTROSE (50%) 50ML SYRG IV PRN (09:33)
[2024-12-07] MEDS: D5W/SOD CHL 0.45%/KCL 20MEQ 1,000 ML IV SCH (09:37)
[2024-12-07] MEDS: PHENYLEPHRINE INJ 40 MG in SODIUM CHL 0.9% 246 ML IV SCH (10:00)
--- NOTE | 2024-12-07 11:44 | DVHCONRES ---
Family History: FH: dementia G8 MOTHER FH: diabetes mellitus G8 FATHER Allergies: Coded Allergies: NO KNOWN ALLERGIES (Unverified , 12/06/24) Home Meds Reported Medications Atorvastatin Calcium (ATORVASTATIN CALCIUM) 40 Mg Tab, 1 TAB PO DAILY, #30 TAB 5 Refills 12/07/24 Ibuprofen (Ibuprofen) 600 Mg Tab, 600 MG PO TIDP PRN for MILD PAIN (1-3 PAIN SCALE), MG 0 Refills 12/07/24 Quetiapine Fumerate (QUETIAPINE FUMARATE) 100 Mg Tab, 50 MG PO HS for 30 Days, MG 12/07/24 Lorazepam (ATIVAN TABLET) 0.5 Mg Tb, 0.5 MG PO BIDP PRN for ANXIETY, TAB 12/07/24 Memantine Hydrochloride (Memantine HCl) 5 Mg Tab, 5 MG PO DAILY, TAB 12/07/24 Omeprazole (Omeprazole Dr) 20 Mg Cap, 20 MG PO, CAP 12/07/24 Fluoxetine Hcl (Fluoxetine Hcl) 20 Mg Cap, 20 MG PO DAILY for 30 Days, MG 12/07/24 Triamcinolone Acetonide (Triamcinolone Acetonide) 0.5 % Cre, 1 APPLIC TOP, APPLIC 12/07/24 Atorvastatin Calcium (Lipitor) 40 Mg Tab, 1 TAB PO DAILY, #30 TAB 5 Refills 12/07/24 Metformin Hydrochloride (Metformin Hcl Er) 750 Mg Tab, 1 TAB PO BID 12/07/24 Glimepiride (Glimepiride) 4 Mg Tab, 4 MG PO for 30 Days, MG 12/07/24 Current Medications Current Medications Medications (Trade) Dose Ordered Sig/Kem Route PRN Reason Start Time Stop Time Status Last Admin Vasopressin 20 units/Sodium Chloride 100 ml @ 9 mls/hr Q11H7M IV 12/06/24 16:45 12/07/24 00:53 Norepinephrine Bitartrate 250 ml @ 3.75 mls/hr Q24H IV 12/06/24 16:45 12/07/24 11:05 Midazolam HCl 50 ml @ 1 mls/hr Q24H IV 12/06/24 17:15 12/06/24 17:15 Fentanyl Citrate 250 ml @ 2.5 mls/hr Q24H IV 12/06/24 17:15 12/06/24 17:15 Propofol 100 ml @ 1.227 mls/ hr Q24H IV 12/06/24 17:30 Sodium Chloride 1,000 ml @ 500 mls/hr Q2H IV 12/06/24 18:00 12/06/24 21:59 DC Sodium Chloride 1,000 ml @ 250 mls/hr Q4H IV 12/06/24 22:00 12/06/24 23:59 DC 12/06/24 21:12 Sodium Chloride 1,000 ml @ 150 mls/hr Q6H40M IV 12/07/24 00:00 12/07/24 09:43 DC 12/07/24 04:11 Insulin Human (Reg)/Sodium Chloride 100 ml @ 0.5 mls/hr Q24H IV 12/06/24 18:00 12/06/24 20:48 DC 12/06/24 18:30 Dextrose 50 ml UD PRN IV SEE CURRENT ALGORITHM or SCALE 12/06/24 18:00 12/07/24 09:33 Diagnostic Test (Pha) (Accu-Chek Comfort Curve T) 1 strip Q90MIN 12/06/24 18:00 12/07/24 10:41 Insulin Glargine (Lantus) 15 units DAILY SC 12/07/24 10:00 Nitroglycerin (Ntrostat Sublingual) 0.4 mg Q5MINP PRN SL FOR CHEST PAIN 12/06/24 19:15 12/06/24 19:37 DC Morphine Sulfate 2 mg Q30M PRN IV FOR CHEST PAIN 12/06/24 19:15 12/06/24 19:37 DC Famotidine (Pepcid Injection) 20 mg Q2D IV 12/06/24 22:00 12/06/24 21:11 Piperacillin Sod/ Tazobactam Sod 100 ml @ 25 mls/hr Q8H IV 12/07/24 04:00 12/07/24 23:59 12/07/24 04:09 Vancomycin HCl 0 ml @ 0 mls/hr UD IV 12/06/24 19:15 Ibuprofen (Motrin Tablet) 600 mg Q6HP PRN PO PAIN SCALE 1-3 OR TEMP>100.4 12/06/24 19:15 Hold Heparin Sodium (Porcine) 5,000 units Q12HR SC 12/06/24 22:00 12/06/24 21:12 Ondansetron HCl (Zofran) 4 mg Q4HP PRN IV NAUSEA / VOMITING 12/06/24 19:15 Nitroglycerin (Ntrostat Sublingual) 0.4 mg Q5MINP PRN SL FOR CHEST PAIN 12/06/24 19:15 Morphine Sulfate 2 mg Q30M PRN IV FOR CHEST PAIN 12/06/24 19:15 Piperacillin Sod/ Tazobactam Sod 100 ml @ 25 mls/hr Q12H IV 12/08/24 10:00 Insulin Human (Reg)/Sodium Chloride 100 ml @ 0.5 mls/hr Q24H IV 12/06/24 20:45 12/06/24 22:19 DC Insulin Human (Reg)/Sodium Chloride 100 ml @ 1 mls/hr Q24H IV 12/06/24 22:30 12/07/24 00:04 DC Phenylephrine HCl 250 ml @ 30 mls/hr Q8H20M IV 12/06/24 23:15 12/07/24 08:16 DC 12/07/24 08:15 Insulin Human (Reg)/Sodium Chloride 100 ml @ 2 mls/hr Q24H IV 12/07/24 00:15 12/07/24 10:29 DC 12/07/24 01:01 Phenylephrine HCl 40 mg/Sodium Chloride 250 ml @ 15 mls/hr [id number] IV 12/07/24 08:15 Potassium Chloride/Dextrose/ Sod Cl 1,000 ml @ 125 mls/hr Q8H IV 12/07/24 09:15 12/07/24 09:37 Epinephrine HCl 250 ml @ 7.5 mls/hr Q24H IV 12/07/24 09:15 Acetaminophen (Tylenol Solution Oral) 650 mg Q6HP PRN GT MILD PAIN (1-3 PAIN SCALE) 12/07/24 09:15 Insulin Human (Reg)/Sodium Chloride 100 ml @ 0.5 mls/hr Q24H IV 12/07/24 10:15 Vital Signs Vital Signs Date Time Temp Pulse Resp B/P (MAP) Pulse Ox O2 Delivery O2 Flow Rate FiO2 12/07/24 11:05 101/48 12/07/24 10:15 120 14 12/07/24 10:00 99.1 99.1 12/07/24 09:19 96 55 12/07/24 08:00 Mechanical Ventilator+ 12/06/24 20:20 0.0 Labs/Diagnostic Data Labs Test 12/07/24 10:20 12/07/24 04:52 12/07/24 03:37 12/06/24 23:18 Range/Units POC Glucose 194 H 70-106 mg/dl Blood Gas Specimen Type Arterial Blood Gas Sample Site Arterial line Blood Gas Patient Temperature 37.0 Arterial Blood Date Drawn [id number] Arterial Blood pH 7.184 *L 7.350-7.450 Arterial Blood Partial Pressure CO2 29.3 L 32.0-45.0 mmHg Arterial Blood Partial Pressure O2 76.5 L 83.0-108.0 mmHg Arterial Blood HCO3 10.8 L 21.0-28.0 mmol/L Arterial Blood Oxygen Saturation 93.4 L 94.0-98.0 % Arterial Blood Base Excess -16.1 L -2.0-3.0 mmol/L Arterial Blood Oxyhemoglobin 92.1 L 94.0-98.0 % Arterial Blood Carboxyhemoglobin 1.1 0.5-1.5 % Arterial Blood Methemoglobin 0.3 0.0-1.5 % Anson Test N/a Blood Gas Total Hemoglobin 13.40 12.0-16.0 g/dL Blood Gas Set Respiration Rate 16.0 Blood Gas Modality Vent - ac Blood Gas Spontaneous Rate 16 FiO2 % 55.0 Blood Gas Tidal Volume 400.0 Blood Gas PEEP or CPAP 5.0 Specimen Drawn By Jesse parker Blood Gas Critical Value Read Back Yes Blood Gas Notified Whom angelito Fuchs np Blood Gas Notified Time [id number] Blood Gas Notified By Siddhartha parker White Blood Count 6.5 # 4.4-10.8 10^3/uL Red Blood Count 4.10 4.0-5.20 10^6/uL Hemoglobin 13.4 12.2-16.2 g/dL Hematocrit 38.5 36.0-46.0 % Mean Corpuscular Volume 94.1 # 80.0-100.0 fL Mean Corpuscular Hemoglobin 32.7 H 28.0-32.0 pg Mean Corpuscular Hemoglobin Concent 34.7 32.0-36.0 g/dL Red Cell Distribution Width 13.1 11.8-14.3 % Platelet Count 134 L 140-450 10^3/uL Mean Platelet Volume 7.3 6.9-10.8 fL Neutrophils (%) (Auto) 37.0-80.0 % Lymphocytes (%) (Auto) 10.0-50.0 % Monocytes (%) (Auto) 0.0-12.0 % Basophils (%) (Auto) 0.0-2.0 % Neutrophils # (Auto) 1.6-8.6 10 ^3/uL Lymphocytes # (Auto) 0.4-5.4 10 ^3/uL Monocytes # (Auto) 0-1.3 10 ^3/uL Differential Total Cells Counted 100.0 100 Neutrophils % (Manual) 17 L 37.0-80.0 Band Neutrophils % (Manual) 61 Lymphocytes % (Manual) 15 10.0-50.0 Monocytes % (Manual) 3 0-12 Eosinophils % (Manual) 0 0-7 Basophils % (Manual) 0 0.0-2.0 Metamyelocytes % (manual) 2 Myelocytes % (Manual) 1 Promyelocytes % (Manual) 1 Blast Cells % (Manual) 0 Reactive Lymphocytes 0 Platelet Estimate Decreased Sodium Level 142 136-145 mmol/L Potassium Level 3.7 3.5-5.1 mmol/L Chloride Level 107 98-107 mmol/L Carbon Dioxide Level 11 L 20-31 mmol/L Anion Gap 24 H 5-15 Blood Urea Nitrogen 69 H 9-23 mg/dL Creatinine 1.97 H 0.550-1.02 mg/dL Glomerular Filtration Rate Calc 27 >90 mL/min BUN/Creatinine Ratio 35.0 H 10.0-20.0 Serum Glucose 189 H 74-106 mg/dL Calcium Level 8.4 L 8.7-10.4 mg/dL Total Bilirubin 0.3 0.2-1.0 mg/dL Aspartate Amino Transferase (AST) 422 H <34 U/L Alanine Aminotransferase (ALT) 158 H 7-40 U/L Alkaline Phosphatase 105 46-116 U/L Troponin I High Sensitivity 772 *H </=34 ng/L Total Protein 4.8 L 5.7-8.2 g/dL Albumin 2.8 L 3.2-4.8 g/dL Random Vancomycin Level 21.1 H 5-10 ug/mL Blood Gas Spontaneous Tidal Volume 412 Test 12/06/24 19:26 12/06/24 17:46 12/06/24 16:50 Range/Units Lactic Acid Level 11.3 *H 0.4-2.0 mmol/L Blood Gas Comments Eosinophils (%) (Auto) 0.2 0.0-7.0 % Eosinophils # (Auto) 0 0-0.8 10 ^3/uL Basophils # (Auto) 0 0-0.2 10 ^3/uL Nucleated Red Blood Cells 0.1 % Serum Osmolality 343 H 278-298 mOsm/kg Phosphorus Level 10.4 H 2.4-5.1 mg/dL Magnesium Level 2.6 1.6-2.6 mg/dL B-Type Natriuretic Peptide 116.46 0-100 pg/mL Microbiology Date/Time Source Procedure Growth Status 12/06/24 16:50 Blood Blood Culture - Preliminary Resulted 12/06/24 16:30 Sputum Gram Stain Pending Resulted 12/06/24 16:30 Sputum Respiratory Culture - Preliminary Resulted MARGARET NINA RESIDENT Dec 07, 2024 11:44
[2024-12-07 12:16] LABS: Anion Gap 19.00001 (5-15); Chloride 118 mmol/L (98-107); Sodium 147 mmol/L (136-145)
[2024-12-07 12:20] LABS: Calcium 5.8 mg/dL (8.7-10.4); Carbon Dioxide < 10 mmol/L (20-31)
[2024-12-07 12:21] LABS: Blood Urea Nitrogen 62 mg/dL (9-23); Glucose 173 mg/dL (74-106)
[2024-12-07 12:26] LABS: Lactic Acid w/Reflex 7.7 mmol/L (0.4-2.0)
[2024-12-07] MEDS ORDERED: ATOR40TA52 PO (12:56)
[2024-12-07] MEDS ORDERED: LORA-1121 PO (12:56)
[2024-12-07] MEDS ORDERED: QUET100T47 PO (12:56)
[2024-12-07] MEDS ORDERED: MEMA1TAB3 PO (12:56)
[2024-12-07] MEDS ORDERED: IBUP-1454 PO (12:56)
[2024-12-07 13:33] LABS: Base Excess -18.2 mmol/L (-2.0-3.0)
--- NOTE | 2024-12-07 14:02 | DVHINCON2 ---
Date of service: Dec 06, 2024 Referring Physician Tyron Tucker NP Reason for Consultation Acute respiratory failure History of Present Illness History Source: Patient Exam Limitations: Clinical condition HPI Patient is a 69-year old lady with a history of diabetes and seizures who presented s/p cardiac arrest. Per EMS, they were called out to patient for seizure-like activity. Upon their arrival to patient, she was found to be unresponsive and in v-fib arrest requiring CPR per ACLS protocols. Patient received shock x2, Epi and Lidocaine while en route to facility. In the emergency room, patient was intubated and return of spontaneous circulation was obtained. Initial ABG demonstrated metabolic acidosis with a pH of 6.9, started on bicarb drip. Pulmonology was consulted to assist in management. Home Meds Reported Medications Atorvastatin Calcium (ATORVASTATIN CALCIUM) 40 Mg Tab, 1 TAB PO DAILY, #30 TAB 5 Refills 12/07/24 Ibuprofen (Ibuprofen) 600 Mg Tab, 600 MG PO TIDP PRN for MILD PAIN (1-3 PAIN SCALE), MG 0 Refills 12/07/24 Quetiapine Fumerate (QUETIAPINE FUMARATE) 100 Mg Tab, 50 MG PO HS for 30 Days, MG 12/07/24 Lorazepam (ATIVAN TABLET) 0.5 Mg Tb, 0.5 MG PO BIDP PRN for ANXIETY, TAB 12/07/24 Memantine Hydrochloride (Memantine HCl) 5 Mg Tab, 5 MG PO DAILY, TAB 12/07/24 Omeprazole (Omeprazole Dr) 20 Mg Cap, 20 MG PO, CAP 12/07/24 Fluoxetine Hcl (Fluoxetine Hcl) 20 Mg Cap, 20 MG PO DAILY for 30 Days, MG 12/07/24 Triamcinolone Acetonide (Triamcinolone Acetonide) 0.5 % Cre, 1 APPLIC TOP, APPLIC 12/07/24 Atorvastatin Calcium (Lipitor) 40 Mg Tab, 1 TAB PO DAILY, #30 TAB 5 Refills 12/07/24 Metformin Hydrochloride (Metformin Hcl Er) 750 Mg Tab, 1 TAB PO BID 12/07/24 Glimepiride (Glimepiride) 4 Mg Tab, 4 MG PO for 30 Days, MG 12/07/24 Past Medical History Cardiac: No pertinent Hx Pulmonary: No pertinent Hx Central Nervous System: Seizure GI: No pertinent Hx Hemotology/Oncology: No pertinent Hx Hepatobiliary: No pertinent Hx Psychiatric: No pertinent Hx Musculoskeletal: No pertinent Hx Rheumotologic: No pertinent Hx Infectious Disease: No peritnent Hx ENT: No pertinent Hx Renal/: No pertinent Hx Endocrine: NIDDM Dermatology: No pertinent Hx Past Surgical History: No pertinent Hx Family History: DM Patient Family History: FH: dementia G8 MOTHER FH: diabetes mellitus G8 FATHER Smoker: No Hx (Negative) Alocohol: None Drugs: None Lives with: With family Domestic Violence: Neg Review of Systems Comments Unable to perform due to patient being intubated and sedated H&P Exam Vital Signs Vital Signs Date Time Temp Pulse Resp B/P (MAP) Pulse Ox O2 Delivery O2 Flow Rate FiO2 12/07/24 13:34 114 24 92/44 (60) 93 60 12/07/24 10:00 99.1 99.1 12/07/24 10:00 Mechanical Ventilator+ 12/06/24 20:20 0.0 Labs/Xrays Labs Test 12/07/24 13:24 12/07/24 11:50 12/07/24 11:26 12/07/24 10:20 Range/Units Blood Gas Specimen Type Arterial Blood Gas Sample Site Arterial line Blood Gas Patient Temperature 37.0 Arterial Blood Date Drawn [id number] Arterial Blood pH 7.154 *L 7.350-7.450 Arterial Blood Partial Pressure CO2 26.3 L 32.0-45.0 mmHg Arterial Blood Partial Pressure O2 55.9 L 83.0-108.0 mmHg Arterial Blood HCO3 9.0 L 21.0-28.0 mmol/L Arterial Blood Oxygen Saturation 85.9 L 94.0-98.0 % Arterial Blood Base Excess -18.2 L -2.0-3.0 mmol/L Arterial Blood Oxyhemoglobin 84.5 L 94.0-98.0 % Arterial Blood Carboxyhemoglobin 1.2 0.5-1.5 % Arterial Blood Methemoglobin 0.4 0.0-1.5 % Anson Test N/a Blood Gas Total Hemoglobin 13.00 12.0-16.0 g/dL Blood Gas Set Respiration Rate 24.0 Blood Gas Modality Vent - ac FiO2 % 55.0 Blood Gas Tidal Volume 400.0 Blood Gas PEEP or CPAP 5.0 Blood Gas Critical Value Read Back Yes Blood Gas Notified Whom cindy Elizabeth np Blood Gas Notified Time [id number] Blood Gas Notified By lona Goodwin rrt Sodium Level 147 #H 136-145 mmol/L Potassium Level 3.0 L 3.5-5.1 mmol/L Chloride Level 118 #H 98-107 mmol/L Carbon Dioxide Level < 10 *L 20-31 mmol/L Anion Gap 19.03903 H 5-15 Blood Urea Nitrogen 62 H 9-23 mg/dL Creatinine 1.41 H 0.550-1.02 mg/dL Glomerular Filtration Rate Calc 41 >90 mL/min BUN/Creatinine Ratio 44.0 H 10.0-20.0 Serum Glucose 173 H 74-106 mg/dL Lactic Acid Level 7.7 *H 0.4-2.0 mmol/L Calcium Level 5.8 *L 8.7-10.4 mg/dL Thyroid Stimulating Hormone (TSH) 0.97 0.55-4.78 uIU/mL Troponin I High Sensitivity 551 *H </=34 ng/L POC Glucose 194 H 70-106 mg/dl Test 12/07/24 04:52 12/07/24 03:37 12/06/24 23:18 12/06/24 17:46 Range/Units Blood Gas Spontaneous Rate 16 Specimen Drawn By Jesse jin rt White Blood Count 6.5 # 4.4-10.8 10^3/uL Red Blood Count 4.10 4.0-5.20 10^6/uL Hemoglobin 13.4 12.2-16.2 g/dL Hematocrit 38.5 36.0-46.0 % Mean Corpuscular Volume 94.1 # 80.0-100.0 fL Mean Corpuscular Hemoglobin 32.7 H 28.0-32.0 pg Mean Corpuscular Hemoglobin Concent 34.7 32.0-36.0 g/dL Red Cell Distribution Width 13.1 11.8-14.3 % Platelet Count 134 L 140-450 10^3/uL Mean Platelet Volume 7.3 6.9-10.8 fL Neutrophils (%) (Auto) 37.0-80.0 % Lymphocytes (%) (Auto) 10.0-50.0 % Monocytes (%) (Auto) 0.0-12.0 % Basophils (%) (Auto) 0.0-2.0 % Neutrophils # (Auto) 1.6-8.6 10 ^3/uL Lymphocytes # (Auto) 0.4-5.4 10 ^3/uL Monocytes # (Auto) 0-1.3 10 ^3/uL Differential Total Cells Counted 100.0 100 Neutrophils % (Manual) 17 L 37.0-80.0 Band Neutrophils % (Manual) 61 Lymphocytes % (Manual) 15 10.0-50.0 Monocytes % (Manual) 3 0-12 Eosinophils % (Manual) 0 0-7 Basophils % (Manual) 0 0.0-2.0 Metamyelocytes % (manual) 2 Myelocytes % (Manual) 1 Promyelocytes % (Manual) 1 Blast Cells % (Manual) 0 Reactive Lymphocytes 0 Platelet Estimate Decreased Total Bilirubin 0.3 0.2-1.0 mg/dL Aspartate Amino Transferase (AST) 422 H <34 U/L Alanine Aminotransferase (ALT) 158 H 7-40 U/L Alkaline Phosphatase 105 46-116 U/L Total Protein 4.8 L 5.7-8.2 g/dL Albumin 2.8 L 3.2-4.8 g/dL Random Vancomycin Level 21.1 H 5-10 ug/mL Blood Gas Spontaneous Tidal Volume 412 Blood Gas Comments Test 12/06/24 16:50 Range/Units Eosinophils (%) (Auto) 0.2 0.0-7.0 % Eosinophils # (Auto) 0 0-0.8 10 ^3/uL Basophils # (Auto) 0 0-0.2 10 ^3/uL Nucleated Red Blood Cells 0.1 % Serum Osmolality 343 H 278-298 mOsm/kg Phosphorus Level 10.4 H 2.4-5.1 mg/dL Magnesium Level 2.6 1.6-2.6 mg/dL B-Type Natriuretic Peptide 116.46 0-100 pg/mL Microbiology Date/Time Source Procedure Growth Status 12/06/24 16:50 Blood Blood Culture - Preliminary Resulted 12/06/24 16:30 Sputum Gram Stain Pending Resulted 12/06/24 16:30 Sputum Respiratory Culture - Preliminary Resulted Assessment/Plan Plan Impression Acute hypoxemic respiratory failure S/p cardiac arrest Aspiration pneumonia Metabolic acidosis Patient seen and examined in the ER Events On mechanical ventilation S/p cardiac arrest On 3 pressors for hemodynamic support Urine appears very cloudy clinically, ? UTI Labs and imaging reviewed Chest x-ray shows extensive infiltrates bilaterally, greater on the left Most likely aspiration vs crush trauma s/p CPR Initial ABG reviewed pH 6.9, pCO2 31, pO2 348 Started on bicarb drip Ventilator changes made to compensate for metabolic acidosis Transitioned to volume control RR 16, tidal volume 400, PEEP 5, FiO2 100% Management Vent support Titrate to maintain sats 90% or above Sedation for vent synchrony Antibiotics Obtain cultures Bronchodilators Monitor renal function Monitor electrolytes Supplement as needed F/u cardiology Pressors as needed for hemodynamic support To maintain a mean arterial pressure of 65 mmHg Therapeutic hypothermia x 24 hours Target temperature 94-96 F DVT prophylaxis Critical care time 35 minutes Plan discussed with: Other (Rn) BARRINGTON ZAVALA MD Dec 07, 2024 14:02
--- NOTE | 2024-12-07 14:04 | DVHPN2 ---
Progress Note - Dictate Date Seen: Dec 07, 2024 Medical Necessity Reason Pt with a Central, PICC or Fol: Yes The following are medically ne: Central Line vital signs Vital Sign Date Time Temp Pulse Resp B/P (MAP) Pulse Ox O2 Delivery O2 Flow Rate FiO2 12/07/24 13:34 114 24 92/44 (60) 93 60 12/07/24 10:00 99.1 99.1 12/07/24 10:00 Mechanical Ventilator+ 12/06/24 20:20 0.0 Total Intake and Output 12/06/24 12/06/24 12/07/24 15:00 23:00 07:00 Intake Total 1084.875 ml 2017.37 ml Output Total 300 ml Balance 1084.875 ml 1717.37 ml medications Current Medications Medications Dose Ordered Sig/Kem Route Start Time Stop Time Status Last Admin Dose Admin Vasopressin 20 units/Sodium Chloride 100 ml @ 9 mls/hr [id number] IV 12/06/24 16:45 12/07/24 11:14 9 MLS/HR Norepinephrine Bitartrate 250 ml @ 3.75 mls/hr Q24H IV 12/06/24 16:45 12/07/24 11:05 56.25 MLS/HR Midazolam HCl 50 ml @ 1 mls/hr Q24H IV 12/06/24 17:15 12/06/24 17:15 1 MLS/HR Fentanyl Citrate 250 ml @ 2.5 mls/hr Q24H IV 12/06/24 17:15 12/06/24 17:15 2.5 MLS/HR Propofol 100 ml @ 1.227 mls/ hr Q24H IV 12/06/24 17:30 Dextrose 50 ml UD PRN IV 12/06/24 18:00 12/07/24 09:33 50 ML Diagnostic Test (Pha) 1 strip Q90MIN 12/06/24 18:00 12/07/24 12:25 1 STRIP Insulin Glargine 15 units DAILY SC 12/07/24 10:00 Famotidine 20 mg Q2D IV 12/06/24 22:00 12/06/24 21:11 20 MG Vancomycin HCl 0 ml @ 0 mls/hr UD IV 12/06/24 19:15 Ibuprofen 600 mg Q6HP PRN PO 12/06/24 19:15 Hold Heparin Sodium (Porcine) 5,000 units Q12HR SC 12/06/24 22:00 12/07/24 11:28 5,000 UNITS Ondansetron HCl 4 mg Q4HP PRN IV 12/06/24 19:15 Nitroglycerin 0.4 mg Q5MINP PRN SL 12/06/24 19:15 Morphine Sulfate 2 mg Q30M PRN IV 12/06/24 19:15 Phenylephrine HCl 40 mg/Sodium Chloride 250 ml @ 15 mls/hr [id number] IV 12/07/24 08:15 12/07/24 10:00 67.5 MLS/HR Potassium Chloride/Dextrose/ Sod Cl 1,000 ml @ 125 mls/hr Q8H IV 12/07/24 09:15 12/07/24 09:37 125 MLS/HR Epinephrine HCl 250 ml @ 7.5 mls/hr Q24H IV 12/07/24 09:15 12/07/24 13:18 7.5 MLS/HR Acetaminophen 650 mg Q6HP PRN GT 12/07/24 09:15 Insulin Human (Reg)/Sodium Chloride 100 ml @ 0.5 mls/hr Q24H IV 12/07/24 10:15 12/07/24 10:15 2 MLS/HR Meropenem 50 ml @ 17 mls/hr Q12HR IV 12/07/24 22:00 Morphine Sulfate 1 mg Q1HP PRN IV 12/07/24 13:45 Lorazepam 1 mg Q1HP PRN IV 12/07/24 13:45 laboratory and microbiology Laboratory Tests 12/07/24 11:50 12/07/24 03:37 Test 12/07/24 11:50 Range/Units Serum Glucose 173 H 74-106 mg/dL Assessment/Plan Impression Acute hypoxemic respiratory failure S/p cardiac arrest Aspiration pneumonia Metabolic acidosis Patient seen and examined in the ER Events On mechanical ventilation S/p cardiac arrest PEEP 5, FiO2 30% On 3 pressors for hemodynamic support Labs and imaging reviewed Chest x-ray shows persistent evolving infiltrates ABG reviewed Some improvement noted pH 7.18, pCO2 21, pO2 76 Management Vent support Titrate to maintain sats 90% or above Sedation for vent synchrony Continue antibiotics F/u cultures Bronchodilators Monitor renal function Monitor electrolytes Supplement as needed F/u cardiology Pressors as needed for hemodynamic support To maintain a mean arterial pressure of 65 mmHg Therapeutic hypothermia x 24 hours Target temperature 94-96 F Prognosis very poor Discussed extensively with family DVT prophylaxis Critical care time 35 minutes Plan discussed with: Other BARRINGTON ZAVALA MD Dec 07, 2024 14:04
--- NOTE | 2024-12-07 14:22 | DVHDS2 ---
Discharge Summary Date of Admission Dec 06, 2024 at 19:10 Date of Discharge: Dec 07, 2024 Admitting Diagnosis Diabetic ketoacidosis Labs/Diagnostic Data: Laboratory Results Test 12/07/24 13:24 12/07/24 11:50 12/07/24 11:26 12/07/24 10:20 Blood Gas Specimen Type Arterial Blood Gas Sample Site Arterial line Blood Gas Patient Temperature 37.0 Arterial Blood Date Drawn [id number] Arterial Blood pH 7.154 (7.350-7.450) Arterial Blood Partial Pressure CO2 26.3 mmHg (32.0-45.0) Arterial Blood Partial Pressure O2 55.9 mmHg (83.0-108.0) Arterial Blood HCO3 9.0 mmol/L (21.0-28.0) Arterial Blood Oxygen Saturation 85.9 % (94.0-98.0) Arterial Blood Base Excess -18.2 mmol/L (-2.0-3.0) Arterial Blood Oxyhemoglobin 84.5 % (94.0-98.0) Arterial Blood Carboxyhemoglobin 1.2 % (0.5-1.5) Arterial Blood Methemoglobin 0.4 % (0.0-1.5) Anson Test N/a Blood Gas Total Hemoglobin 13.00 g/dL (12.0-16.0) Blood Gas Set Respiration Rate 24.0 Blood Gas Modality Vent - ac FiO2 % 55.0 Blood Gas Tidal Volume 400.0 Blood Gas PEEP or CPAP 5.0 Blood Gas Critical Value Read Back Yes Blood Gas Notified Whom cindy Griffin np Blood Gas Notified Time [id number] Blood Gas Notified By lona Goodwin rrt Sodium Level 147 mmol/L (136-145) Potassium Level 3.0 mmol/L (3.5-5.1) Chloride Level 118 mmol/L (98-107) Carbon Dioxide Level < 10 mmol/L (20-31) Anion Gap 19.29012 (5-15) Blood Urea Nitrogen 62 mg/dL (9-23) Creatinine 1.41 mg/dL (0.550-1.02) Glomerular Filtration Rate Calc 41 mL/min (>90) BUN/Creatinine Ratio 44.0 (10.0-20.0) Serum Glucose 173 mg/dL (74-106) Lactic Acid Level 7.7 mmol/L (0.4-2.0) Calcium Level 5.8 mg/dL (8.7-10.4) Thyroid Stimulating Hormone (TSH) 0.97 uIU/mL (0.55-4.78) Troponin I High Sensitivity 551 ng/L (</=34) POC Glucose 194 mg/dl (70-106) Test 12/07/24 04:52 12/07/24 03:37 12/06/24 23:18 12/06/24 17:46 Blood Gas Spontaneous Rate 16 Specimen Drawn By Jesse jin rt White Blood Count 6.5 10^3/uL (4.4-10.8) Red Blood Count 4.10 10^6/uL (4.0-5.20) Hemoglobin 13.4 g/dL (12.2-16.2) Hematocrit 38.5 % (36.0-46.0) Mean Corpuscular Volume 94.1 fL (80.0-100.0) Mean Corpuscular Hemoglobin 32.7 pg (28.0-32.0) Mean Corpuscular Hemoglobin Concent 34.7 g/dL (32.0-36.0) Red Cell Distribution Width 13.1 % (11.8-14.3) Platelet Count 134 10^3/uL (140-450) Mean Platelet Volume 7.3 fL (6.9-10.8) Neutrophils (%) (Auto) % (37.0-80.0) Lymphocytes (%) (Auto) % (10.0-50.0) Monocytes (%) (Auto) % (0.0-12.0) Basophils (%) (Auto) % (0.0-2.0) Neutrophils # (Auto) 10 ^3/uL (1.6-8.6) Lymphocytes # (Auto) 10 ^3/uL (0.4-5.4) Monocytes # (Auto) 10 ^3/uL (0-1.3) Differential Total Cells Counted 100.0 (100) Neutrophils % (Manual) 17 (37.0-80.0) Band Neutrophils % (Manual) 61 Lymphocytes % (Manual) 15 (10.0-50.0) Monocytes % (Manual) 3 (0-12) Eosinophils % (Manual) 0 (0-7) Basophils % (Manual) 0 (0.0-2.0) Metamyelocytes % (manual) 2 Myelocytes % (Manual) 1 Promyelocytes % (Manual) 1 Blast Cells % (Manual) 0 Reactive Lymphocytes 0 Platelet Estimate Decreased Total Bilirubin 0.3 mg/dL (0.2-1.0) Aspartate Amino Transferase (AST) 422 U/L (<34) Alanine Aminotransferase (ALT) 158 U/L (7-40) Alkaline Phosphatase 105 U/L (46-116) Total Protein 4.8 g/dL (5.7-8.2) Albumin 2.8 g/dL (3.2-4.8) Random Vancomycin Level 21.1 ug/mL (5-10) Blood Gas Spontaneous Tidal Volume 412 Blood Gas Comments Test 12/06/24 16:50 Eosinophils (%) (Auto) 0.2 % (0.0-7.0) Eosinophils # (Auto) 0 10 ^3/uL (0-0.8) Basophils # (Auto) 0 10 ^3/uL (0-0.2) Nucleated Red Blood Cells 0.1 % Serum Osmolality 343 mOsm/kg (278-298) Phosphorus Level 10.4 mg/dL (2.4-5.1) Magnesium Level 2.6 mg/dL (1.6-2.6) B-Type Natriuretic Peptide 116.46 pg/mL (0-100) Other Laboratory Tests 12/07/24 11:50 12/07/24 03:37 Brief Hx & Hospital Course: HPI Comments 69-year-old female BIBA due to ALOC. EMS was bagging upon arrival at 1622. ROSC was obtained at 1606 prior to ER arrival. Per EMS, initial call was for a possible seizure, but when they arrived patient was unresponsive and was in V- Fib. Patient was shocked twice at 200 Joules. Patient went into V-Tach and was given one round of Lidocaine and 2 rounds of Epi as well. Glucose reading "HIGH". MD at bedside upon patient arrival to ER. Course of hospitalization: Patient had declining overall status while in the hospital requiring multiple vasopressors, with the patient having no signs of purposeful neurological signs. Patient remained with severe metabolic acidosis. Discussion was made with the patient was son who was bedside, with the patient was son who is next of kin requesting that patient have withdrawal of care. Family was side, after being cleared by [facility], patient will have compassionate medications administered including morphine and Ativan prior to being weaned off of mechanical ventilation. Physical examination General: Alert and Oriented x3. No acute distress. Well-nourished. Eyes: EOMI. Anicteric. HENT: Moist mucous membranes. Lungs: Clear to auscultation bilaterally. No accessory muscle use. Cardiovascular: Regular rate and rhythm. No murmur. No JVD. Abdomen: Soft, non-tender and non-distended. No palpable masses. Extremities: No edema. Non-tender. Skin: No rashes or lesions. Warm. Neurologic: No focal neurological deficits. CN II-XII grossly intact, but not individually tested. Psychiatric: Cooperative. Appropriate mood and affect. Total time spent with patient discussing and formulating plan of care: 35 minutes. This medical document was created using an electronic medical record system with [employer] dictation system. Although this document has been carefully reviewed, there may still be some phonetic and typographical errors. These areas are purely typographical due to imperfections of the software programs, and do not reflect any compromise in the patient's medical care. Condition at Discharge: Unstable Final Diagnosis/Problems List Cardiopulmonary arrest Diabetic ketoacidosis Septic shock Acute hypoxic respiratory failure Probable community-acquired pneumonia, Gram-positive/Gram-negative etiology Acute kidney injury, vasomotor nephropathy Diabetes mellitus Discharge Disposition: at Hospital [facility] Discharge Statement: "Patient was advised to return to the ER or call 911 if any headaches, dizziness, shortness of breath, chest pain, abdominal pain, bleeding, fevers, or worsening of medical condition. Patient was counseled about treatment plan, medications, possible side effects, patientverbalized understanding. All questions were answered to the best of my ability. This discharge took greater then 30 minutes in planning, reviewing documentation, counseling the patient, and discussing with other team members." ASSESSMENT ASSESSMENT Assessment Date of Service: Dec 07, 2024 Billing Provider: DENISSE GRIFFIN NP Common Visit Codes: 36443-RBI/OBS DISCH DAY >30min DENISSE GRIFFIN NP Dec 07, 2024 14:22
[2024-12-07] MEDS: LORazepam 2MG/ML-1ML VIAL IV PRN (14:28)
[2024-12-07] MEDS: MORPHINE SULFATE INJ 2 MG/ml SYRG IV PRN (14:29)
[2024-12-07] MEDS: INSULIN LANTUS (GLARGINE) 1 /0.01ml (100units/ml) SC SCH (19:40)
[2024-12-07] MEDS: LACTATED RINGER'S 1,000 ML IV ONE (19:41)
[2024-12-07] MEDS: CALCIUM GLUC 1,000mg/50ml-NS 50 ML IV ONE (19:41)
[2024-12-07] MEDS ORDERED: MEROPENEM 1GM IVPB 50 ML IV SCH (22:00)
[2024-12-08] MEDS ORDERED: PIPERACILLIN-TAZOB 3.375GM 100 ML IV SCH (10:00)
== END 2024-12-07 14:45 | DRG 720 ==
LOC: EDBD 16:22 → ER 16:22 → OVERFLOW 19:10
PROVIDERS: ADMIT Nurse Practitioner Acute Care; ATTEND Nurse Practitioner Acute Care
PROC: 0BH17EZ Insertion of Endotracheal Airway into Trachea, Via Natural or Artificial Opening (ICD-10-PCS; principal; 2024-12-06)
PROC: 5A1935Z Respiratory Ventilation, Less than 24 Consecutive Hours (ICD-10-PCS; 2024-12-06)
PROC: 06HY33Z Insertion of Infusion Device into Lower Vein, Percutaneous Approach (ICD-10-PCS; 2024-12-06)
PROC: 04HY32Z Insertion of Monitoring Device into Lower Artery, Percutaneous Approach (ICD-10-PCS; 2024-12-06)
DX: A41.9 Sepsis, unspecified organism (principal); I46.9 Cardiac arrest, cause unspecified; J96.01 Acute respiratory failure with hypoxia; N17.0 Acute kidney failure with tubular necrosis; E11.11 Type 2 diabetes mellitus with ketoacidosis with coma; J69.0 Pneumonitis due to inhalation of food and vomit; J15.69 Pneumonia due to other Gram-negative bacteria; R65.21 Severe sepsis with septic shock; J15.9 Unspecified bacterial pneumonia; I47.20 Ventricular tachycardia, unspecified; I49.01 Ventricular fibrillation; R74.8 Abnormal levels of other serum enzymes; Z83.3 Family history of diabetes mellitus; Z82.0 Family history of epilepsy and other diseases of the nervous system; Z79.899 Other long term (current) drug therapy; Z79.84 Long term (current) use of oral hypoglycemic drugs
CPT/HCPCS: 31500; 36415; 36556; 36600; 36620; 71045; 80048; 80053; 80202; 82805; 82962; 83605; 83735; 83880; 83930; 84100; 84443; 84484; 85007; 85025; 85027; 87040; 87070; 87077; 87186; 87205; 94002; 94003; 96372; 96374; G0378; J0171; J1815; J2543; J2704; J3490